=== PATIENT | male | born 2000 ===

== ENCOUNTER 2022-05-01 05:34 | Day surgery (SDC) | payer OTHER | END 2022-05-01 13:10 | disposition home or self-care (01) | LOC: CIR.AMB 05:34 | PROVIDERS: ATTEND Urology | DX: N47.1 Phimosis (principal); Z20.822 Contact with and (suspected) exposure to COVID-19; Z91.041 Radiographic dye allergy status; J45.909 Unspecified asthma, uncomplicated ==